=== PATIENT | female | born 1990 ===

== ENCOUNTER 2020-12-20 07:59 | Emergency (ER) | payer OTHER ==
[~2020-12-20] VITALS: Ht 162.6 cm; Wt 59.0 kg
[2020-12-20] MEDS ORDERED: TAMS0.4C (08:39)
[2020-12-20] MEDS ORDERED: KETO10TA2 (08:39)
[2020-12-20] MEDS ORDERED: MACRODANTIN100 M1 (08:40)
== END 2020-12-20 14:19 | disposition home or self-care (01) ==
LOC: ER 07:59
DX: N39.0 Urinary tract infection, site not specified (principal); K59.09 Other constipation; R10.32 Left lower quadrant pain

== ENCOUNTER 2020-12-22 07:41 | Emergency (ER) | payer OTHER ==
[~2020-12-22] VITALS: Ht 162.6 cm; Wt 591.0 kg
[~2020-12-22 07:41] MED LIST: KETO10TA2; MACRODANTIN100 M1; TAMS0.4C
== END 2020-12-22 13:18 | disposition home or self-care (01) ==
LOC: ER 07:41
DX: R10.84 Generalized abdominal pain (principal)